=== PATIENT | female | born 1980 | race Asian ===

== ENCOUNTER 2024-08-06 16:51 | Emergency (ER) | payer OTHER, SELFPAY ==
[2024-08-06 17:12] VITALS: BP 122/59; PULSE 105; RESP 20; TEMP 37.9; O2SAT 100; BMI 24.5
[2024-08-06 17:39] VITALS: PULSE 101; RESP 21; O2SAT 100
--- NOTE | 2024-08-06 17:58 | ED_ITS ---
HPI - General Adult General Chief complaint: Fever Stated complaint: muscle px, CHAVIS, lower back px Time Seen by Provider: 08/06/24 17:51 Mode of arrival: Ambulatory History of Present Illness HPI narrative: 44-year-old female with history of G6PD deficiency, had left lower quadrant abdominal pain 5 days ago lasting for couple of days, seemed to go away, then recurrent earlier today, went to see her care provider on the [facility], labs were drawn, elevated white blood cell count, was told to come in for further evaluation. She has had recent generalized muscle aches. No frequency of urination or dysuria, not currently on any oral or other antibiotics. Denies recent cough or shortness of breath. Has history of chronic headaches, unchanged. No photophobia. No chest pain or shortness of breath. Related Data Previous Rx's Medication Instructions Recorded cefdinir 300 mg capsule 300 mg PO BID 10 days #20 caps 08/06/24 Allergies Allergy/AdvReac Type Severity Reaction Status Date / Time No Known Drug Allergies Allergy Verified 08/06/24 18:08 Patient History Social History Smoking Status: Never smoker Smoking Status: Never smoker Exam Narrative Exam Narrative: GENERAL: Well-developed patient, in mild distress. HEAD: Atraumatic. Normocephalic. EYES: Pupils equal round and reactive. Extraocular motions intact. No scleral icterus. No injection or drainage. ENT: Nose without bleeding, purulent drainage. Throat without erythema, tonsillar hypertrophy or exudate. Airway patent. NECK: Trachea midline. Non tender CARDIOVASCULAR: Regular rate and rhythm without murmurs, gallops, or rubs. RESPIRATORY: Clear to auscultation. Breath sounds equal bilaterally. No wheezes, rales, or rhonchi. GASTROINTESTINAL: Abdomen nondistended, mild left lower quadrant tenderness without guarding or rebound, bowel tones active without rushes or tinkles EXTREMITIES: No edema or joint tenderness. BACK: Nontender without deformity or crepitance. No flank tenderness. NEURO: AOx3. motor functions grossly nonfocal. SKIN: No rash or erythema of visible areas Initial Vital Signs Initial Vital Signs: Vital Signs Temperature 100.3 F H 08/06/24 17:12 Pulse Rate 105 H 08/06/24 17:12 Respiratory Rate 20 08/06/24 17:12 Blood Pressure 122/59 L 08/06/24 17:12 Pulse Oximetry 100 08/06/24 17:12 Oxygen Delivery Method Room Air 08/06/24 17:12 Course Orders Ordered: Discontinued Medications Sodium Chloride (Normal Saline 0.9%) 1,000 mls @ 1,000 mls/hr IV BOLUS ONE Stop: 08/06/24 18:18 Last Infusion: 08/06/24 19:18 Dose: Infused Documented By: Admin: 08/06/24 18:06 Dose: 1,000 mls/hr Documented By: Ceftriaxone Sodium 1,000 mg/ (Sodium Chloride) 100 mls @ 200 mls/hr IV NOW ONE Stop: 08/06/24 17:52 Last Infusion: 08/06/24 19:18 Dose: Infused Documented By: Admin: 08/06/24 18:07 Dose: 200 mls/hr Documented By: Ondansetron HCl (Ondansetron 4 Mg/2 Ml Inj) 4 mg IV NOW PRN PRN Reason: Nausea And Vomiting Ondansetron HCl (Ondansetron 4 Mg Odt) 4 mg PO NOW PRN PRN Reason: Nausea And Vomiting Vital Signs Vital signs: Vital Signs - 8 hr 08/06/24 21:00 Temperature 98.7 F Pulse Rate 65 Respiratory Rate 23 Blood Pressure 133/87 Pulse Oximetry 98 Oxygen Delivery Method Room Air Medical Decision Making Lab Data 08/06/24 17:50 08/06/24 17:50 Labs: Lab Results 08/06/24 08/06/24 Range/Units 17:24 17:50 WBC 14.2 H (4.5-11.0) X10^3/uL RBC 4.08 (4.0-5.2) X10^6/uL Hgb 11.5 L (12.0-16.0) g/dL Hct 34.7 L (36-46) % MCV 84.9 (80-100) fL MCH 28.0 (26-34) PG MCHC 33.0 (30-36) % RDW 12.8 (11.6-14.8) % Plt Count 219 (150-400) X10^3/uL Neut % (Auto) 84.2 H (50-75) % Lymph % (Auto) 8.8 L (25-40) % Milam % (Auto) 6.9 (3-14) % Eos % (Auto) 0.0 L (2-4) % Baso % (Auto) 0.1 (0-2) % Neut # (Auto) 94508 H (0326-5417) /uL Lymph # (Auto) 1300 (5453-7269) /uL Milam # (Auto) 1000 H (0-900) /uL Eos # (Auto) 0 (0-450) /uL Baso # (Auto) 0 (0-100) /uL PT 14.5 H (9.4-12.5) SECONDS INR 1.3 (0.9-1.3) APTT 38 H (25.1-36.5) SECONDS Sodium 133 L (137-145) mmol/L Potassium 4.1 (3.4-5.1) mmol/L Chloride 95 L (98-107) mmol/L Carbon Dioxide 28 (22-32) mmol/L BUN 10 (7-17) mg/dL Creatinine 0.87 (0.52-1.04) mg/dL Estimated GFR > 60 (>60) mL/min BUN/Creatinine Ratio 11.5 (6-22) Glucose 112 H (70-99) mg/dL Lactate 1.5 (0.7-2.1) mmol/L Calcium 9.2 (8.4-10.2) mg/dL Total Bilirubin 1.2 (0.2-1.3) mg/dL AST 327 H (14-36) IU/L ALT 540 H (<35) IU/L Alkaline Phosphatase 260 H (38-126) U/L Total Protein 8.8 H (6.3-8.2) g/dL Albumin 4.5 (3.5-5.0) g/dL Globulin 4.3 H (1.7-4.1) g/dL Albumin/Globulin Ratio 1.0 (1.0-2.8) Lipase 159 (23-300) U/L Procalcitonin 0.303 (<0.5) ng/mL Urine RBC 5-10/hpf H (0-5/HPF) Urine WBC 30-100/hpf H (0-5/HPF) Ur Squamous Epith Cells None seen (0-5/HPF) Ur Transition Epith Cell 0-1/hpf (0-5/HPF) Urine Bacteria Few (2-10) H (None) Vol Urine Centrifuged 10ml (spun) Point of Care Testing Test Results Negative Urine Dip Bedside Urine Glucose Negative Bedside Urine Bilirubin - Negative Bedside Urine Ketone - Negative Urine Specific Dixie 1.010 Bedside Urine Occult Blood +++ Bedside Urine pH 6.0 Bedside Urine Protein +/- 15 Bedside Urine Urobilinogen - Negative Bedside Urine Nitrite - Negative Bedside Urine Leukocytes +++ 500 Esterase Point of care testing: Point of Care Testing Test Results Negative Urine Dip Bedside Urine Glucose Negative Bedside Urine Bilirubin - Negative Bedside Urine Ketone - Negative Urine Specific Dixie 1.010 Bedside Urine Occult Blood +++ Bedside Urine pH 6.0 Bedside Urine Protein +/- 15 Bedside Urine Urobilinogen - Negative Bedside Urine Nitrite - Negative Bedside Urine Leukocytes +++ [address] scan - abdomen/pelvis: Radiologist's Impression: [address] [address] [address] Scan Report Signed Patient: Akhil Thomson MR#: [id number] : 1980 Acct:[id number] Age/Sex: 44 / F Date of Service: 08/06/24 Loc: ED Accession Number: [id number] Procedure: CT abdomen pelvis w con Ordering Provider: Shamar Maradiaga MD PROCEDURE: CT ABDOMEN PELVIS W CON INDICATIONS: LLQ pain, fever TECHNIQUE: After the administration of intravenous contrast, axial sections acquired from the lung bases to the pubic symphysis. Coronal and sagittal reformats were performed. For radiation dose reduction, the following was used: automated exposure control, adjustment of mA and/or kV according to patient size. COMPARISON: None. FINDINGS: Image quality: Diagnostic. Lower Chest: No significant findings. ABDOMEN: Liver: No solid mass. Gallbladder: No radiopaque gallstones or wall thickening. Biliary ducts: No biliary dilation. Pancreas: No ductal dilation. Spleen: Size is within normal limits. Adrenal Glands: No adrenal nodules. Kidneys and Ureters: There is right perinephric fat stranding and right periureteral fat stranding. Mild right hydroureter is noted. No obstructing stone is noted. Mild left perinephric fat stranding and left periureteral fat stranding is also seen with mild left-sided hydroureter questionable small calcification in the region of distal left ureter is seen and measures 3 mm in size series 2, image 116. No other abnormal calcifications along the expected course of left ureter is seen. No solid mass. No complex renal cystic lesion which requires follow up. Stomach and Bowel: There is no bowel obstruction or abnormal bowel wall thickening. Appendix is visualized in right lower quadrant and is within normal limits. No abscess collection. Peritoneum: No abnormal intraperitoneal fluid. No free air. Ventral Wall: No significant ventral hernia. Abdominal Nodes: No retroperitoneal or mesenteric adenopathy by size criteria. Vessels: Aorta and inferior vena cava are normal in size. PELVIS: Pelvic Organs: 4.2 x 5.6 cm cystic structure is seen in left adnexa. Bladder: No bladder wall thickening, accounting for underdistention. Pelvic Nodes: No enlarged lymph nodes. Miscellaneous: No inguinal hernias are seen. Bones: No aggressive osseous abnormality. IMPRESSION: 1. 4.2 x 5.6 cm cystic structure in left adnexa without adjacent inflammatory changes. Finding may represent a large left ovarian cyst. Pelvic ultrasound can be done for further evaluation of this region if indicated. 2. Questionable 3 mm calcifications seen in the region of distal left ureter which may represent a small phleboliths. At least partially obstructing left distal ureteral stone cannot be excluded. Mild bilateral hydroureter without significant hydronephrosis. Bilateral perinephric fat stranding and periureteral fat stranding. No right- sided renal stone is seen. Finding may represent infectious or inflammatory pyelonephritis suggest clinical correlation. 3. No bowel obstruction or abnormal bowel wall thickening. Normal appendix. Mild constipation. No free fluid or free air. Dictated by: Santos Tripathi M.D. on 08/06/2024 at 19:36 Approved by: Santos Tripathi M.D. on 08/06/2024 at 19:41 [facility] Narrative Medical decision making narrative: 44-year-old female with history of prior hysterectomy, left lower quadrant discomfort intermittently in the last 5 days, some tenderness left lower quadrant. Declines pain medications when offered. CT abdomen and pelvis. Shows 4.2 x 5.6 cm cystic struck in her left adnexa without adjacent inflammatory changes, suspected left ovarian cyst. Possible left ureteral phleboliths, versus nonobstructing tiny stones. No acute colonic/intestinal changes. Some perinephric stranding noted, nonobstructive punctate stone versus phlebolith changes. See radiology report. Urinalysis mildly abnormal, elevated lactate, IV ceftriaxone for fever, possible urinary tract infection. We will specifically requests urine culture. We will send prescription for cefdinir course antibiotics to her pharmacy. Follow up as an outpatient for left-sided ovarian cyst, given contact information for Gynecology on-call. Discharged home. Discharge Plan Departure Patient Disposition: Home Clinical Impression: Cyst of left ovary, Urinary tract infection Activity Restrictions/Additional Instructions: Intermittent left-sided lower abdominal discomfort. History of hysterectomy reported. Urinalysis somewhat abnormal, urine culture requested. IV antibiotics ceftriaxone given after blood cultures. Fever noted on triage. Possible urinary tract infection. CT abdomen and pelvis performed showed some stranding of the kidneys, possible kidney infection. Also there is some cystic change to your left ovary. Copy of the report provided. Consider further follow up with Gynecology as an outpatient. Further antibiotics for possible urinary tract infection, prescription sent to your pharmacy. Recheck symptoms and your urine culture results with your regular doctor in a couple of days. Return to this/nearest emergency department for any change worsening symptoms or any concerns prior. Prescriptions: New cefdinir 300 mg capsule 300 mg PO BID 10 Days Qty: 20 0RF Referrals: ProviderAlexsander [Primary Care Provider] - Stand Alone Forms: Patient Portal/API/Survey
--- NOTE | 2024-08-06 18:03 | DI.CT.S_ITS ---
PROCEDURE: CT ABDOMEN PELVIS W CON INDICATIONS: LLQ pain, fever TECHNIQUE: After the administration of intravenous contrast, axial sections acquired from the lung bases to the pubic symphysis. Coronal and sagittal reformats were performed. For radiation dose reduction, the following was used: automated exposure control, adjustment of mA and/or kV according to patient size. COMPARISON: None. FINDINGS: Image quality: Diagnostic. Lower Chest: No significant findings. ABDOMEN: Liver: No solid mass. Gallbladder: No radiopaque gallstones or wall thickening. Biliary ducts: No biliary dilation. Pancreas: No ductal dilation. Spleen: Size is within normal limits. Adrenal Glands: No adrenal nodules. Kidneys and Ureters: There is right perinephric fat stranding and right periureteral fat stranding. Mild right hydroureter is noted. No obstructing stone is noted. Mild left perinephric fat stranding and left periureteral fat stranding is also seen with mild left-sided hydroureter questionable small calcification in the region of distal left ureter is seen and measures 3 mm in size series 2, image 116. No other abnormal calcifications along the expected course of left ureter is seen. No solid mass. No complex renal cystic lesion which requires follow up. Stomach and Bowel: There is no bowel obstruction or abnormal bowel wall thickening. Appendix is visualized in right lower quadrant and is within normal limits. No abscess collection. Peritoneum: No abnormal intraperitoneal fluid. No free air. Ventral Wall: No significant ventral hernia. Abdominal Nodes: No retroperitoneal or mesenteric adenopathy by size criteria. Vessels: Aorta and inferior vena cava are normal in size. PELVIS: Pelvic Organs: 4.2 x 5.6 cm cystic structure is seen in left adnexa. Bladder: No bladder wall thickening, accounting for underdistention. Pelvic Nodes: No enlarged lymph nodes. Miscellaneous: No inguinal hernias are seen. Bones: No aggressive osseous abnormality. IMPRESSION: 1. 4.2 x 5.6 cm cystic structure in left adnexa without adjacent inflammatory changes. Finding may represent a large left ovarian cyst. Pelvic ultrasound can be done for further evaluation of this region if indicated. 2. Questionable 3 mm calcifications seen in the region of distal left ureter which may represent a small phleboliths. At least partially obstructing left distal ureteral stone cannot be excluded. Mild bilateral hydroureter without significant hydronephrosis. Bilateral perinephric fat stranding and periureteral fat stranding. No right-sided renal stone is seen. Finding may represent infectious or inflammatory pyelonephritis suggest clinical correlation. 3. No bowel obstruction or abnormal bowel wall thickening. Normal appendix. Mild constipation. No free fluid or free air. Dictated by: Santos Tripathi M.D. on 08/06/2024 at 19:36 Approved by: Santos Tripathi M.D. on 08/06/2024 at 19:41
[2024-08-06] MEDS: SODIUM CHLORIDE 0.9% 1,000 ML 1000 ML IV (18:06)
[2024-08-06] MEDS: cefTRIAXone 1,000 MG in SODIUM CHLORIDE 0.9% 100 ML 200 MG IV (18:07)
[2024-08-06 18:09] LABS: Add Manual Diff / Slide Review NO; Basophils Absolute Auto 0 /uL (0-100); Basophils Percent Auto 0.1 % (0-2); Eosinophils Absolute Auto 0 /uL (0-450); Hematocrit 34.7 % (36-46); Hemoglobin 11.5 g/dL (12.0-16.0); Lymphocytes Absolute Auto 1300 /uL (1100-4500); Lymphocytes Percent Auto 8.8 % (25-40); Mean Corpuscular Volume 84.9 fL (80-100); Monocytes Absolute Auto 1000 /uL (0-900); Monocytes Percent Auto 6.9 % (3-14); Neutrophils Absolute Auto 12000 /uL (1500-7000); Neutrophils Percent Auto 84.2 % (50-75); Platelet Count 219 X10^3/uL (150-400); Red Blood Cell Count 4.08 X10^6/uL (4.0-5.2); Red Cell Distribution Width 12.8 % (11.6-14.8); White Blood Cell Count 14.2 X10^3/uL (4.5-11.0)
[2024-08-06 18:25] LABS: INR 1.3 (0.9-1.3); Prothrombin Time 14.5 SECONDS (9.4-12.5)
[2024-08-06 18:28] LABS: PTT Partial Thromboplastin Tim 38 SECONDS (25.1-36.5)
[2024-08-06 18:29] LABS: Lactate (Lactic Acid) 1.5 mmol/L (0.7-2.1)
[2024-08-06 18:30] LABS: Alanine Aminotransferase 540 IU/L (<35); Albumin 4.5 g/dL (3.5-5.0); Alkaline Phosphatase 260 U/L (38-126); Aspartate Aminotransferase 327 IU/L (14-36); BUN Creatinine Ratio 11.5 (6-22); Bilirubin Total 1.2 mg/dL (0.2-1.3); Blood Urea Nitrogen 10 mg/dL (7-17); Calcium 9.2 mg/dL (8.4-10.2); Carbon Dioxide 28 mmol/L (22-32); Chloride 95 mmol/L (98-107); Estimated Glomerular Filt Rate > 60 mL/min (>60); Globulin 4.3 g/dL (1.7-4.1); Glucose 112 mg/dL (70-99); HEMOLYSIS < 15 (0-50); Lipase 159 U/L (23-300); Potassium 4.1 mmol/L (3.4-5.1); Sodium 133 mmol/L (137-145); Total Protein 8.8 g/dL (6.3-8.2)
[2024-08-06 18:41] LABS: Bacteria Urine Few (2-10); RBC Urine 5-10/HPF (0-5/HPF); Squamous Epithelial Cell Urine None Seen (0-5/HPF); Transitional Epi Cells Urine 0-1/HPF (0-5/HPF); Urine Volume 10mL (spun); WBC Urine 30-100/HPF (0-5/HPF)
[2024-08-06 18:46] LABS: Procalcitonin 0.303 ng/mL (<0.5)
[2024-08-06 21:00] VITALS: BP 133/87; PULSE 65; RESP 23; TEMP 37.1; O2SAT 98
== END 2024-08-06 21:02 | disposition home or self-care (01) ==
PROVIDERS: Emergency Medicine; Emergency Provider Emergency Medicine
DX: N39.0 Urinary tract infection, site not specified (principal); N83.202 Unspecified ovarian cyst, left side; B96.20 Unspecified Escherichia coli [E. coli] as the cause of diseases classified elsewhere
CPT/HCPCS: 36415; 74177; 80053; 81003; 81015; 81025; 83605; 83690; 84145; 85025; 85610; 85730; 87040; 87077; 87086; 87186; 96365; 99284; J0696; Q9967

== ENCOUNTER 2024-08-11 12:39 | Emergency (ER) | payer OTHER, SELFPAY ==
[2024-08-11 12:50] VITALS: BP 125/74; PULSE 95; RESP 17; TEMP 36.6; O2SAT 100; BMI 24.5
[2024-08-11 13:35] LABS: Add Manual Diff / Slide Review NO; Basophils Absolute Auto 100 /uL (0-100); Basophils Percent Auto 0.6 % (0-2); Eosinophils Absolute Auto 100 /uL (0-450); Eosinophils Percent Auto 1.2 % (2-4); Hematocrit 30.9 % (36-46); Hemoglobin 10.4 g/dL (12.0-16.0); INR 1.1 (0.9-1.3); Lymphocytes Absolute Auto 2000 /uL (1100-4500); Mean Corpuscular HGB Conc 33.8 % (30-36); Mean Corpuscular Hemoglobin 28.2 PG (26-34); Mean Corpuscular Volume 83.5 fL (80-100); Monocytes Absolute Auto 300 /uL (0-900); Monocytes Percent Auto 3.2 % (3-14); Neutrophils Absolute Auto 6500 /uL (1500-7000); Platelet Count 319 X10^3/uL (150-400); Prothrombin Time 12.4 SECONDS (9.4-12.5); Red Cell Distribution Width 12.5 % (11.6-14.8); White Blood Cell Count 8.9 X10^3/uL (4.5-11.0)
[2024-08-11] MEDS: SODIUM CHLORIDE 0.9% 1,000 ML 1000 ML IV (13:35)
[2024-08-11 13:38] LABS: PTT Partial Thromboplastin Tim 37 SECONDS (25.1-36.5)
[2024-08-11 13:39] LABS: Alanine Aminotransferase 224 IU/L (<35); Albumin 4.4 g/dL (3.5-5.0); Albumin Globulin Ratio 1.1 (1.0-2.8); Alkaline Phosphatase 276 U/L (38-126); Aspartate Aminotransferase 57 IU/L (14-36); BUN Creatinine Ratio 15.6 (6-22); Bilirubin Total 0.5 mg/dL (0.2-1.3); Blood Urea Nitrogen 12 mg/dL (7-17); Calcium 9.5 mg/dL (8.4-10.2); Carbon Dioxide 28 mmol/L (22-32); Chloride 99 mmol/L (98-107); Estimated Glomerular Filt Rate > 60 mL/min (>60); Glucose 99 mg/dL (70-99); HEMOLYSIS < 15 (0-50); Lipase 228 U/L (23-300); Potassium 3.7 mmol/L (3.4-5.1); Sodium 138 mmol/L (137-145); Total Protein 8.4 g/dL (6.3-8.2)
--- NOTE | 2024-08-11 13:41 | DI.US.S_ITS ---
PROCEDURE: US ABDOMEN LIMITED INDICATIONS: ELEVATED LIVER ENZYMES TECHNIQUE: Real-time focused scanning was performed of the abdomen, with image documentation. COMPARISON: [facility], CT, CT KIDNEY URETER BLADDER (KUB), 08/11/2024, 14:04. FINDINGS: Liver measures 16.2 cm without significant echotexture abnormality. 2 non mobile foci are present within the gallbladder lumen measuring approximately 4 mm. Gallbladder wall thickness is normal at 1.4 mm. Common bile duct measures 3.5 mm. IMPRESSION: Liver is unremarkable. Suspected gallbladder polyps. Dictated by: Odalis Valderrama M.D. on 08/11/2024 at 14:46 Approved by: Odalis Valderrama M.D. on 08/11/2024 at 14:46
--- NOTE | 2024-08-11 13:44 | ED_ITS ---
HPI - Recheck/Abnormal Lab/Rx General Chief Complaint: Recheck/Abnormal Lab/Rx Stated Complaint: Culture test Doctor called Back ER Time Seen by Provider: 08/11/24 13:26 Source: patient Mode of arrival: Ambulatory History of Present Illness HPI narrative: Patient is a 44-year-old female history of G6PD presenting to day at request of PCP for positive blood cultures. I actually called her 2 days ago saying that she was Gram-negative. She does have E coli positive urine and blood culture from August 06. She was given cefdinir as an outpatient and actually reports that she was feeling better. She has this kind of chronic left-sided pain. No nausea or vomiting fevers are controlled. She was noted to have elevated liver enzymes during that visit as well with an and a known etiology. She really denies any new symptoms but says sometimes that left flank pain is worse. There was questionable nephrolithiasis on her CT scan. Related Data Previous Rx's Medication Instructions Recorded cefdinir 300 mg capsule 300 mg PO BID 10 days #20 caps 08/06/24 Allergies Allergy/AdvReac Type Severity Reaction Status Date / Time No Known Drug Allergies Allergy Verified 08/11/24 12:56 Patient History Social History Smoking Status: Never smoker Smoking Status: Never smoker Exam Initial Vital Signs Initial Vital Signs: Vital Signs Temperature 98 F 08/11/24 12:50 Pulse Rate 95 H 08/11/24 12:50 Respiratory Rate 17 08/11/24 12:50 Blood Pressure 125/74 08/11/24 12:50 Pulse Oximetry 100 08/11/24 12:50 Oxygen Delivery Method Room Air 08/11/24 12:50 GENERAL: Alert well-appearing nontoxic 44-year-old female HEENT: Head atraumatic,EOMI, pupils reactive, face symmetric, [moist] mucous membranes CARDIOVASCULAR: Regular rate and rhythm without murmurs, rubs or gallops. RESPIRATORY: Breath sounds equal bilaterally, no wheezes rales or rhonchi. ABDOMEN: Soft, mild left lower quadrant pain no guarding no rebound negative Daley's sign : No CVA tenderness EXTREMITIES: Normal range of motion, no clubbing or edema. Neurovascularly intact NEUROLOGICAL: Alert and oriented x4.Normal gait and speech. Cranial nerves II through XII grossly intact. SKIN: Warm, dry, no laceration, no petechiae, no rashes or lesions. Course Orders Ordered: ED Orders 08/11/24 13:15 Complete Blood Count AUTO DIFF Stat Comprehensive Metabolic Panel Stat Lactate (Lactic Acid) Stat Lipase Stat PTT Partial Thromboplastin Jean Stat Procalcitonin Stat Prothrombin Time INR Stat 08/11/24 13:21 Blood Culture Stat 08/11/24 13:41 US abdomen limited Stat 08/11/24 13:46 Urine Microscopic Stat 08/11/24 13:56 CT kidney ureter bladder (KUB) Stat 08/11/24 13:57 US pelvic complete Stat Discontinued Medications Sodium Chloride (Normal Saline 0.9%) 1,000 mls @ 1,000 mls/hr IV BOLUS ONE Stop: 08/11/24 14:01 Last Infusion: 08/11/24 15:39 Dose: Infused Documented By: Admin: 08/11/24 13:35 Dose: 1,000 mls/hr Documented By: SAL Ceftriaxone Sodium 1,000 mg/ (Sodium Chloride) 100 mls @ 200 mls/hr IV NOW ONE Stop: 08/11/24 13:42 Last Infusion: 08/11/24 15:24 Dose: Infused Documented By: Admin: 08/11/24 14:36 Dose: 200 mls/hr Documented By: SAL Ondansetron HCl (Ondansetron 4 Mg/2 Ml Inj) 4 mg IV NOW PRN PRN Reason: Nausea And Vomiting Ondansetron HCl (Ondansetron 4 Mg Odt) 4 mg PO NOW PRN PRN Reason: Nausea And Vomiting Vital Signs Vital signs: Vital Signs - 8 hr 08/11/24 12:50 08/11/24 14:39 08/11/24 14:40 Temperature 98 F Pulse Rate 95 H 96 H 94 H Respiratory Rate 17 Blood Pressure 125/74 Pulse Oximetry 100 100 100 Oxygen Delivery Method Room Air Room Air 08/11/24 14:40 08/11/24 15:00 08/11/24 15:00 Temperature Pulse Rate 88 Respiratory Rate Blood Pressure 111/75 114/61 Pulse Oximetry 100 Oxygen Delivery Method 08/11/24 15:30 08/11/24 15:30 Temperature Pulse Rate 90 Respiratory Rate Blood Pressure 116/71 Pulse Oximetry 100 Oxygen Delivery Method MDM - Recheck/Abnormal Lab/Rx Lab Data 08/11/24 13:15 08/11/24 13:15 Labs: Lab Results 08/11/24 08/11/24 Range/Units 13:15 13:46 WBC 8.9 (4.5-11.0) X10^3/uL RBC 3.70 L (4.0-5.2) X10^6/uL Hgb 10.4 L (12.0-16.0) g/dL Hct 30.9 L (36-46) % MCV 83.5 (80-100) fL MCH 28.2 (26-34) PG MCHC 33.8 (30-36) % RDW 12.5 (11.6-14.8) % Plt Count 319 (150-400) X10^3/uL Neut % (Auto) 73.0 (50-75) % Lymph % (Auto) 22.0 L (25-40) % [place] % (Auto) 3.2 (3-14) % Eos % (Auto) 1.2 L (2-4) % Baso % (Auto) 0.6 (0-2) % Neut # (Auto) 6500 (8616-4993) /uL Lymph # (Auto) 2000 (4852-2011) /uL [place] # (Auto) 300 (0-900) /uL Eos # (Auto) 100 (0-450) /uL Baso # (Auto) 100 (0-100) /uL PT 12.4 (9.4-12.5) SECONDS INR 1.1 (0.9-1.3) APTT 37 H (25.1-36.5) SECONDS Sodium 138 (137-145) mmol/L Potassium 3.7 (3.4-5.1) mmol/L Chloride 99 (98-107) mmol/L Carbon Dioxide 28 (22-32) mmol/L BUN 12 (7-17) mg/dL Creatinine 0.77 (0.52-1.04) mg/dL Estimated GFR > 60 (>60) mL/min BUN/Creatinine Ratio 15.6 (6-22) Glucose 99 (70-99) mg/dL Lactate 1.0 (0.7-2.1) mmol/L Calcium 9.5 (8.4-10.2) mg/dL Total Bilirubin 0.5 (0.2-1.3) mg/dL AST 57 H (14-36) IU/L ALT 224 H (<35) IU/L Alkaline Phosphatase 276 H (38-126) U/L Total Protein 8.4 H (6.3-8.2) g/dL Albumin 4.4 (3.5-5.0) g/dL Globulin 4.0 (1.7-4.1) g/dL Albumin/Globulin Ratio 1.1 (1.0-2.8) Lipase 228 (23-300) U/L Procalcitonin 0.116 (<0.5) ng/mL Urine RBC 1-5/hpf (0-5/HPF) Urine WBC None seen (0-5/HPF) Ur Squamous Epith Cells 1-5 /hpf (0-5/HPF) Urine Bacteria None seen (None) Ur Culture Indicated? Cult not indicated Vol Urine Centrifuged 10ml (spun) Urine Dip Bedside Urine Glucose Negative Bedside Urine Bilirubin - Negative Bedside Urine Ketone - Negative Urine Specific [place] 1.000 Bedside Urine Occult Blood + Bedside Urine pH 6.0 Bedside Urine Protein - Negative Bedside Urine Urobilinogen - Negative Bedside Urine Nitrite - Negative Bedside Urine Leukocytes - Negative Esterase Imaging Data US - abdomen: Radiologist's Impression: PROCEDURE: US ABDOMEN LIMITED INDICATIONS: ELEVATED LIVER ENZYMES TECHNIQUE: Real-time focused scanning was performed of the abdomen, with image documentation. COMPARISON: [facility], CT, CT KIDNEY URETER BLADDER (KUB), 08/11/2024, 14:04. FINDINGS: Liver measures 16.2 cm without significant echotexture abnormality. 2 non mobile foci are present within the gallbladder lumen measuring approximately 4 mm. Gallbladder wall thickness is normal at 1.4 mm. Common bile duct measures 3.5 mm. IMPRESSION: Liver is unremarkable. Suspected gallbladder polyps. Dictated by: Odalis Valderrama M.D. on 08/11/2024 at 14:46 Approved by: Odalis Valderrama M.D. on 08/11/2024 at 14:4 US - PRODUCT DEVELOPMENT TECHNICIAN: Radiologist's Impression: PROCEDURE: US PELVIC COMPLETE INDICATIONS: left ovarian cyst TECHNIQUE: Real-time scanning was performed of the pelvic organs, with image documentation. Additional endovaginal scanning was necessary due to incomplete visualization of the adnexal and endometrial structures by transabdominal scanning. Color and spectral Doppler of the ovaries was performed. COMPARISON: None. FINDINGS: Uterus: Uterus is absent. Ovaries: The right ovary measures 2.7 x 1.5 x 1.5 cm, with a calculated ovarian volume of 3 cc. The left ovary measures 5.7 x 5.9 x 4.5 cm, with a calculated ovarian volume of 80 cc. There is a simple appearing left ovarian cyst measuring 5.8 x 4.6 x 3.6 cm, without internal septations. Otherwise, the ovaries have a normal sonographic appearance. Less than 12 follicles can be seen in each ovary. No adnexal masses are seen. Normal blood flow to the ovaries. Other: No pathologic free abdominal or pelvic fluid. IMPRESSION: Simple appearing left ovarian cyst measuring 5.8 x 4.6 x 3.6 cm, without internal septations. This is likely benign but in the history of left lower quadrant pain, consider follow-up in 4-6 weeks. Non edematous left ovarian parenchyma. Normal blood flow to the ovaries. We strive to produce accurate, complete, and clear reports of imaging services. To assist us in improving patient care, this report was composed using standard report templates and voice recognition software. Therefore, it may contain abnormal punctuation, insertions and/or omissions. Occasional wrong-word or sound-alike substitutions may occur. Though we review the report and make efforts to correct it, we do recommend that the report be read carefully in proper context to recognize any text inaccuracies. Dictated by: Reji Griffin M.D. on 08/11/2024 at 14:50 CT scan - abdomen/pelvis: Radiologist's Impression: PROCEDURE: CT KIDNEY URETER BLADDER (KUB) INDICATIONS: right flank pain TECHNIQUE: After the administration of oral contrast, 5 mm thick sections acquired from the diaphragms to the symphysis. 5 mm coronal and sagittal reformats were performed. For radiation dose reduction, the following was used: automated exposure control, adjustment of mA and/or kV according to patient size. COMPARISON: None. FINDINGS: Image quality: Diagnostic. Lower Chest: No significant findings. ABDOMEN: Liver: No contour-deforming mass. Gallbladder: No radiopaque gallstones or wall thickening. Biliary ducts: No biliary dilation. Pancreas: No ductal dilation. Spleen: Size is within normal limits. Adrenal Glands: No adrenal nodules. Kidneys and Ureters: No hydronephrosis. No contour-deforming mass. Mild right- sided ureterectasis. Stomach and Bowel: Normal colonic caliber, without significant wall thickening. Normal appendix. Peritoneum: No abnormal intraperitoneal fluid. No free air. Ventral Wall: No significant hernia. Abdominal Nodes: No retroperitoneal or mesenteric adenopathy by size criteria. Vessels: Aorta and inferior vena cava are normal in size. PELVIS: Pelvic Organs: Left adnexal cystic lesion measuring 6.1 x 4.9 cm, with indeterminate attenuation. Bladder: Unremarkable. Pelvic Nodes: No enlarged lymph nodes. Miscellaneous: No inguinal hernias are seen. Bones: No aggressive osseous abnormality. Bilateral sacroiliitis, left greater than right. IMPRESSION: 6.1 x 4.9 cm left adnexal lesion with indeterminate attenuation, possibly hemorrhagic cyst. Consider pelvic ultrasound for complete characterization and to exclude ovarian torsion. Mild right-sided ureterectasis, which may indicate ascending urinary tract infection. Correlate with urinalysis. Bilateral sacroiliitis, which can be seen in the setting of other medical conditions, such as inflammatory bowel disease. Dictated by: Reji Griffin M.D. on 08/11/2024 at 14:10 Approved by: Reji Griffin M.D. on 08/11/2024 at 14:13 [facility] Narrative Medical decision making narrative: MDM CC: Positive blood cultures revisit left lower quadrant pain Complicating co-morbidities: Healthy 44-year-old female Data collected from: Patient in recent visits Medical records reviewed: CT from August 06 does show a 4.2 x 5.6 cystic structure and left adnexa large left ovarian cyst questionable 3 mm cast with a vacation in distal left ureter. Possible pyelonephritis Differential considered: Sepsis cholecystitis cholelithiasis diverticulitis ovarian torsion ovarian abscess Exam documented above, pertinent findings include: Well-appearing 44-year-old female mildly tender left flank pain in left lower quadrant no peritoneal signs no acute abdomen Lab Test results independently reviewed as above. Pertinent findings: WBC shows 8.9 previously 14.2 hemoglobin 10.4 hematocrit 30.9 No electrolyte abnormalities creatinine 0.7 Bilirubin 0.5 AST 57 ALT 224 alk-phos 276, previously she had a bilirubin of 1.2 AST 327 ALT 540 no phos 260 overall significant improvement Urinalysis negative for infection today Imaging studies independently reviewed: Ultrasound right upper quadrant liver unremarkable suspect gallbladder polyps CT no nephrolithiasis Pelvic ultrasound simple appearing left ovarian cyst Treatments: IV Rocephin and fluid Re-evaluations: Remained stable pain controlled Discussion: Patient is a well-appearing 44-year-old female who did have Gram- negative bacteremia which appears to have been treated as an outpatient with cefdinir. She has elevated liver enzymes unclear source or etiology at this time. She has no evidence of cholecystitis. Abdomen is soft nontender she was no evidence of nephrolithiasis no need for ureteral stent. At this time she really does not meet any sepsis criteria or SIRS criteria. Recommend continuing outpatient p.o. antibiotics and follow up with PCP. Blood cultures today are pending Discharge Plan Departure Patient Disposition: Home Clinical Impression: Bacteremia due to Escherichia coli, Cyst of left ovary, Elevated liver enzymes Activity Restrictions/Additional Instructions: *You have been diagnosed with Gram-negative bacteria *What to do: At this time it appears that the antibiotics are working. Blood work today is overall improved from previous. You do have a left ovarian cyst 2 which maybe causing some of your left lower quadrant pain. But no other abnormality today. *Continue to take medications as directed PLEASE FINISH ANTIBIOTICS UNTIL GONE Dont take Tylenol. Okay to take ibuprofen 600 mg every 6 hours *Follow up with your primary care provider in 2-3 days or call [phone] [place]up [place] base *Return to ER if you should have increasing pain fever nausea vomiting or any new, worsening or concerning symptoms Prescriptions: No Action cefdinir 300 mg capsule 300 mg PO BID 10 Days Qty: 20 0RF Referrals: ProviderAlexsander [Primary Care Provider] - Stand Alone Forms: Patient Portal/API/Survey
[2024-08-11 13:56] LABS: Procalcitonin 0.116 ng/mL (<0.5)
--- NOTE | 2024-08-11 13:56 | DI.CT.S_ITS ---
PROCEDURE: CT KIDNEY URETER BLADDER (KUB) INDICATIONS: right flank pain TECHNIQUE: After the administration of oral contrast, 5 mm thick sections acquired from the diaphragms to the symphysis. 5 mm coronal and sagittal reformats were performed. For radiation dose reduction, the following was used: automated exposure control, adjustment of mA and/or kV according to patient size. COMPARISON: None. FINDINGS: Image quality: Diagnostic. Lower Chest: No significant findings. ABDOMEN: Liver: No contour-deforming mass. Gallbladder: No radiopaque gallstones or wall thickening. Biliary ducts: No biliary dilation. Pancreas: No ductal dilation. Spleen: Size is within normal limits. Adrenal Glands: No adrenal nodules. Kidneys and Ureters: No hydronephrosis. No contour-deforming mass. Mild right-sided ureterectasis. Stomach and Bowel: Normal colonic caliber, without significant wall thickening. Normal appendix. Peritoneum: No abnormal intraperitoneal fluid. No free air. Ventral Wall: No significant hernia. Abdominal Nodes: No retroperitoneal or mesenteric adenopathy by size criteria. Vessels: Aorta and inferior vena cava are normal in size. PELVIS: Pelvic Organs: Left adnexal cystic lesion measuring 6.1 x 4.9 cm, with indeterminate attenuation. Bladder: Unremarkable. Pelvic Nodes: No enlarged lymph nodes. Miscellaneous: No inguinal hernias are seen. Bones: No aggressive osseous abnormality. Bilateral sacroiliitis, left greater than right. IMPRESSION: 6.1 x 4.9 cm left adnexal lesion with indeterminate attenuation, possibly hemorrhagic cyst. Consider pelvic ultrasound for complete characterization and to exclude ovarian torsion. Mild right-sided ureterectasis, which may indicate ascending urinary tract infection. Correlate with urinalysis. Bilateral sacroiliitis, which can be seen in the setting of other medical conditions, such as inflammatory bowel disease. Dictated by: Reij Griffin M.D. on 08/11/2024 at 14:10 Approved by: Reji Griffin M.D. on 08/11/2024 at 14:13
--- NOTE | 2024-08-11 13:57 | DI.US.S_ITS ---
PROCEDURE: US PELVIC COMPLETE INDICATIONS: left ovarian cyst TECHNIQUE: Real-time scanning was performed of the pelvic organs, with image documentation. Additional endovaginal scanning was necessary due to incomplete visualization of the adnexal and endometrial structures by transabdominal scanning. Color and spectral Doppler of the ovaries was performed. COMPARISON: None. FINDINGS: Uterus: Uterus is absent. Ovaries: The right ovary measures 2.7 x 1.5 x 1.5 cm, with a calculated ovarian volume of 3 cc. The left ovary measures 5.7 x 5.9 x 4.5 cm, with a calculated ovarian volume of 80 cc. There is a simple appearing left ovarian cyst measuring 5.8 x 4.6 x 3.6 cm, without internal septations. Otherwise, the ovaries have a normal sonographic appearance. Less than 12 follicles can be seen in each ovary. No adnexal masses are seen. Normal blood flow to the ovaries. Other: No pathologic free abdominal or pelvic fluid. IMPRESSION: Simple appearing left ovarian cyst measuring 5.8 x 4.6 x 3.6 cm, without internal septations. This is likely benign but in the history of left lower quadrant pain, consider follow-up in 4-6 weeks. Non edematous left ovarian parenchyma. Normal blood flow to the ovaries. We strive to produce accurate, complete, and clear reports of imaging services. To assist us in improving patient care, this report was composed using standard report templates and voice recognition software. Therefore, it may contain abnormal punctuation, insertions and/or omissions. Occasional wrong-word or sound-alike substitutions may occur. Though we review the report and make efforts to correct it, we do recommend that the report be read carefully in proper context to recognize any text inaccuracies. Dictated by: Reji Griffin M.D. on 08/11/2024 at 14:50 Approved by: Reji Griffin M.D. on 08/11/2024 at 14:52
[2024-08-11 14:09] LABS: Urine Volume 10mL (spun)
[2024-08-11 14:12] LABS: Bacteria Urine None Seen; Culture Indicated Urine Cult Not Indicated; RBC Urine 1-5/HPF (0-5/HPF); Squamous Epithelial Cell Urine 1-5 /HPF (0-5/HPF); WBC Urine None Seen (0-5/HPF)
[2024-08-11] MEDS: cefTRIAXone 1,000 MG in SODIUM CHLORIDE 0.9% 100 ML 200 MG IV (14:36)
[2024-08-11 14:39] VITALS: PULSE 96; O2SAT 100
[2024-08-11 14:40] VITALS: BP 111/75; PULSE 94; O2SAT 100
[2024-08-11 15:00] VITALS: BP 114/61; PULSE 88; O2SAT 100
[2024-08-11 15:30] VITALS: BP 116/71; PULSE 90; O2SAT 100
== END 2024-08-11 15:40 | disposition home or self-care (01) ==
PROVIDERS: Emergency Provider Emergency Medicine
DX: R78.81 Bacteremia (principal); B96.20 Unspecified Escherichia coli [E. coli] as the cause of diseases classified elsewhere; N83.202 Unspecified ovarian cyst, left side; R74.8 Abnormal levels of other serum enzymes
CPT/HCPCS: 36415; 74176; 76705; 76830; 76856; 80053; 81003; 81015; 83605; 83690; 84145; 85025; 85610; 85730; 87040; 93975; 96361; 96365; 99284; J0696